=== PATIENT | male | born 1935 | race Caucasian/White ===

== ENCOUNTER 2017-07-28 09:05 | Day surgery (SDC) | payer MEDICARE ==
[2017-07-25 08:45] VITALS: BMI 25.3
[2017-07-28 10:37] VITALS: RESP 16; TEMP 96.8
[2017-07-28] MEDS ORDERED: LIDOCAINE 1% 20 ML VIAL (10MG/ML) FOR IV START INTRADERMA ONE (10:40)
[2017-07-28] MEDS: LACTATED RINGERS 1,000 ML IV SCH ×2 (10:46→11:07)
[2017-07-28] MEDS ORDERED: PROPOFOL 10 MG/ML 20 ML VIAL IV ONE (11:11)
--- NOTE | 2017-07-28 11:46 | P.PCN ---
Date of Procedure: 07/28/17 Procedure(s) Performed: Procedure: Total colonoscopy. Preoperative diagnosis: Screening for neoplasia, patient has history of polyps and intermittent rectal bleeding. Postoperative diagnosis: 1. Diverticulosis with no evidence of acute diverticulitis or strictures. 2. Low-grade internal hemorrhoids not bleeding at the time of this exam. Preparation: HalfLytely prep. Sedation: Was provided by anesthesia. Brief clinical history: The patient is an 82-year-old male who is scheduled for this evaluation because of history of polyps and history of rectal bleeding. The patient's last colonoscopy was around 5 years ago. Procedure: With the patient on his left lateral decubitus position and after informed consent and adequate sedation, the perianal area was inspected and it did not show any fissures or fistulas. There were no masses felt on digital rectal examination. The Olympus CFQ 160L video colonoscope was then inserted in the rectum in the usual fashion and advanced to the cecum. There were multiple diverticular orifices seen scattered along the length of the bowel wall more so on the left side and sigmoid with less on the right side and around the hepatic flexure with no evidence of acute diverticulitis or strictures. The mucosa appeared healthy. No polyps or tumors were seen. I retroflexed the endoscope in the rectum before the endoscope was withdrawn. Low -grade internal hemorrhoids were noted with no evidence of bleeding. The patient tolerated the procedure well. Plan: The patient was reassured. Discussed dietary measures and local care for hemorrhoids. Further plans based on his course. He will follow up with you as planned.
[2017-07-28 12:03] VITALS: BP 134/82; PULSE 61
--- NOTE | 2017-07-30 20:17 | CDI ---
Outpatient Documentation Clarification Form Date: 07/30/17 CDS/Rehab Consultant Name: Rachele Maradiaga Phone: If any questions, call Beatrice Gonzalez Churn Tender at [phone] Patient Name: Akash Cota Admit Date: 07/28/17 Discharge Date: 07/28/17 ATTENTION: The [facility] Coding Staff appreciate your assistance in clarifying documentation. Please respond to the clarification below the line at the bottom and electronically sign. The [facility] Coding staff will review the response and follow-up if needed. Please note: Queries are made part of the Legal Health Record. If you have any questions, please contact the Churn Tender. Dear Dr. Lawrence, What is the cause of the rectal bleeding? Our coding resources state that when rectal bleeding is documented along with internal and/or external hemorrhoids, the physician must be queried to determine whether the rectal bleeding is secondary to the hemorrhoids, or incidental. Thank you for your kind consideration. MTDD
== END 2017-07-28 12:51 | disposition home or self-care (01) ==
LOC: ORWHC2ENDO 09:05
DX: K62.5 Hemorrhage of anus and rectum (principal); K64.8 Other hemorrhoids; K57.30 Diverticulosis of large intestine without perforation or abscess without bleeding; Z86.010 Personal history of colon polyps; I25.10 Atherosclerotic heart disease of native coronary artery without angina pectoris; I48.91 Unspecified atrial fibrillation; I10 Essential (primary) hypertension; E78.5 Hyperlipidemia, unspecified; Z95.0 Presence of cardiac pacemaker; I25.2 Old myocardial infarction; Z95.1 Presence of aortocoronary bypass graft
CPT/HCPCS: 45378; J2704

== ENCOUNTER 2020-02-29 07:02 | Day surgery (SDC) | payer MEDICARE ==
[~2020-02-29 07:02] MED LIST: ALPRAZolam 0.25 MG TAB PO PRN; ALPRAZolam 0.5 MG TAB PO PRN; ASPIRIN 325 MG TAB PO ONE; HEPARIN SODIUM,PORCINE 10,000 UNIT in SODIUM CHLORIDE 0.9% 1,000 ML IRRIGATION PRN; HEPARIN SODIUM,PORCINE 2,500 UNIT in SODIUM CHLORIDE 0.9% 250 ML IRRIGATION PRN; NITROGLYCERIN SL TABS 0.4 MG TAB SUBLINGUAL PRN; SODIUM CHLORIDE 0.9% 1,000 ML in EMPTY BAG 1 BAG IV ONE
[2020-02-29] MEDS ORDERED: SODIUM CHLORIDE 0.9% 1,000 ML IV ONE (07:17)
[2020-02-29 07:46] LABS: Basophils # (A) 0.1 k/uL (0-0.2); Basophils % (A) 1 %; Eosinophils # (A) 0.2 k/uL (0-0.7); Eosinophils % (A) 2 %; HCT 50.9 % (39.0-53.0); HGB 17.4 gm/dL (13.0-17.5); Lymphocytes # (A) 1.4 k/uL (1.0-4.8); Lymphocytes % (A) 19 %; MCH 33.4 pg (25.0-35.0); MCHC 34.2 g/dL (31.0-37.0); MCV 97.7 fL (80.0-100.0); Mean Platelet Volume 7.4; Monocytes # (A) 0.4 k/uL (0-1.0); Monocytes % (A) 6 %; Neutrophils # (A) 5.2 k/uL (1.3-7.7); Neutrophils % (A) 71 %; Platelet Count 193 k/uL (150-450); RBC 5.21 m/uL (4.30-5.90); RDW 13.6 % (11.5-15.5); WBC 7.3 k/uL (3.8-10.6)
[2020-02-29] MEDS ORDERED: fentaNYL (PF) 50 MCG/ML 2 ML AMP ONE (08:33)
[2020-02-29 08:52] LABS: African American GFR (CKD) >90 (>60 ml/min/1.73 sqM); Anion Gap 5 mmol/L; Blood Urea Nitrogen 19 mg/dL (9-20); Calcium 8.8 mg/dL (8.4-10.2); Carbon Dioxide 26 mmol/L (22-30); Chloride 109 mmol/L (98-107); Glucose 103 mg/dL (74-99); Non-African American GFR(CKD) 82 (>60 ml/min/1.73 sqM); Potassium 4.1 mmol/L (3.5-5.1); Sodium 140 mmol/L (137-145)
[2020-02-29] MEDS ORDERED: IV FLUID CONTINUATION 1,000 ML IV ONE (10:05)
[2020-02-29] MEDS: BENZOCAINE SPRAY 1 CAN MUCOUS MEM ONE ×2 (10:10→10:15)
[2020-02-29] MEDS ORDERED: fentaNYL (PF) 50 MCG/ML 2 ML AMP IV ONE (10:24)
[2020-02-29] MEDS ORDERED: MIDAZOLAM 2 MG/2 ML VIAL IV ONE (10:24)
[2020-02-29] MEDS ORDERED: VERAPAMIL 2.5 MG/ML 2 ML AMP ONE (10:33)
[2020-02-29] MEDS ORDERED: HEPARIN SODIUM 1,000 UN/ML (10ML VL) ONE (10:34)
[2020-02-29] MEDS ORDERED: LIDOCAINE 1% INJ 10MG/ML (20 ML MDV) SQ ONE ×2 (10:56→11:00)
[2020-02-29] MEDS ORDERED: LIDOCAINE 1% INJ 10MG/ML (20 ML MDV) ONE (10:59)
[2020-02-29] MEDS ORDERED: CLOPIDOGREL 75 MG TAB ONE (11:26)
[2020-02-29] MEDS ORDERED: HEPARIN SODIUM 1,000 UN/ML (10ML VL) IV ONE (11:28)
[2020-02-29 11:30] LABS: O2 Sat Blood Gas 64.6 %
[2020-02-29 11:30] LABS: O2 Sat Blood Gas 60.6 %
[2020-02-29] MEDS ORDERED: CLOPIDOGREL 75 MG TAB PO ONE (11:30)
[2020-02-29 11:31] LABS: O2 Sat Blood Gas 97.3 %
[2020-02-29] MEDS ORDERED: IOPAMIDOL-370 125ML BTL INJ ONE ×2 (11:34→12:02)
[2020-02-29] MEDS ORDERED: NITROGLYCERIN 1000MCG/10ML SYRINGE INTRACORON ONE (11:45)
--- NOTE | 2020-02-29 11:59 | ECHOT ---
TRANSESOPHAGEAL ECHOCARDIOGRAM INDICATION: Evaluation of aortic valve. PROCEDURE: After explaining the procedure to the patient with risks and the complications, blood pressure, heart rate, O2 saturation were monitored. The throat was sprayed with Cetacaine. He received 2 mg intravenous Versed, 50 mcg intravenous fentanyl. The probe was introduced in the esophagus without difficulty. Images were obtained. Following that, the probe was removed. There was no immediate complication. FINDINGS: Left atrial size is mildly dilated. Left ventricular size is normal. The estimated ejection fraction of 50% to 55%. The aortic valve is a tricuspid valve severely calcified with reduced opening by planimetry. The valve area is between 0.6 and 0.7 centimeter square. Mitral valve revealed mitral annulus calcification. Tricuspid valve is normal. Descending thoracic aorta appears to be normal. No pericardial effusion was noted. Contrast bubble study revealed no evidence of shunting across the interatrial septum with Valsalva maneuver. There was inability to advance the probe into the stomach, probably related to a hiatal hernia. Doppler, pulse wave and color Doppler obtained revealed mild to moderate mitral with mild tricuspid and aortic regurgitation. There was no shunting by color Doppler study. CONCLUSION: 1. Normal left ventricular size with an ejection fraction of 50% to 55%. 2. Severe aortic stenosis by planimetry, unable to obtain a gradient because of the inability to advance the probe in the stomach. 3. Mitral annulus calcification. 4. Mild to moderate mitral with mild tricuspid and aortic regurgitation. 5. No pericardial effusion. 6. No shunting across the interatrial septum. MMODL / IJN: [id number] /
[2020-02-29] MEDS ORDERED: IOPAMIDOL-370 100ML BTL INJ ONE (12:51)
[2020-02-29] MEDS ORDERED: MAG HYDROX/AL HYDROX/SIMETH 30 ML CUP PO PRN (13:05)
[2020-02-29] MEDS ORDERED: RX INFO: IV CONTRAST WAS GIVEN 1 EACH MISC MISCELLANE PRN (13:05)
[2020-02-29] MEDS ORDERED: ZOLPIDEM 5 MG TAB PO PRN (13:05)
[2020-02-29] MEDS ORDERED: NITROGLYCERIN SL TABS 0.4 MG TAB SUBLINGUAL PRN (13:05)
[2020-02-29] MEDS ORDERED: ATROPINE SULFATE 0.1 MG/ML 10ML SYRINGE IV PRN (13:05)
[2020-02-29] MEDS ORDERED: SODIUM CHLORIDE 0.9% 1,000 ML IV SCH (13:15)
--- NOTE | 2020-02-29 15:56 | CC ---
CARDIAC CATHETERIZATION REPORT Mr. Cota is an 85-year-old male with known history of coronary artery disease, status post coronary artery bypass grafting, history of hypertension and hyperlipidemia with progressive aortic stenosis and symptoms of dyspnea on exertion. In view of that, recommendation was made regarding cardiac catheterization. The procedure, its risks and complications were discussed with the patient, who was in full understanding and agreement. PROCEDURE DESCRIPTION: Patient was brought to the laborer tanbark in a fasting, semi-sedated state. After receiving fentanyl and Benadryl and achieving a moderate conscious sedated state, using Xylocaine anesthesia and Seldinger technique, a 6-Anguillan sheath was introduced into the right femoral artery and an 8-Anguillan sheath into the right femoral vein. Right heart catheterization was performed using Genoa-Alfonzo catheter. Multiple pressures and samples were obtained. Cardiac output by thermodilution was calculated. Following that, selective right and left coronary angiography was performed using 6-Anguillan, 4 bend, right and left Jayro catheters. Multiple views were taken of the coronary arteries, including hemiaxial views. Following that the right Jayro was used to cannulate the JOSEPH and images of the grafts were obtained. Following that, the Jayro was used to cross the aortic valve and left ventricular end-diastolic pressure and gradient were calculated. Following that, catheters were removed. Images were reviewed. FINDINGS: FLUOROSCOPY: There was severe calcification involving the coronary arteries. HEMODYNAMICS: Right atrial saturation 60%. Pulmonary saturation 65%. Femoral artery saturation 97%. Cardiac output by thermodilution 3.3 L/minute and by Kristin 3.8 L/minute. Pulmonary capillary wedge pressure systolic of 32, diastolic of 12 with a mean of 22 mmHg. Pulmonary capillary wedge pressure V-wave of 16 with a mean of 12 mmHg. Right ventricular systolic pressure of 36 with an end-diastolic of 4 mmHg. Right atrial V-wave of 5 with a mean of 4 mmHg. Left ventricular end-diastolic pressure was 16-18 mmHg. There was a 36 mm peak gradient across the aortic valve. The cardiac output by Hakki formula was 0.63 cm2. CORONARY ARTERIES: LEFT MAIN: This is a large-sized vessel, bifurcating into left circumflex and left anterior descending artery. Left main coronary artery has a 20% to 30% plaque in the proximal and mid segment. The rest of the vessel has no high-grade stenosis. LEFT ANTERIOR DESCENDING ARTERY: This vessel is subtotally occluded after the takeoff of the first septal automotive salesperson at the vessel proximally. It has diffuse disease. There is competitive flow in the distal LAD. LEFT CIRCUMFLEX: This is a nondominant vessel giving rise to 3 obtuse marginal branches. The second one is the largest in caliber. After the takeoff of the first obtuse marginal branch there is a 95% stenosis, and after the takeoff of the second obtuse marginal branch there is diffuse intimal disease in a long segment up to 90%. The vessel beyond that is small in caliber. RAMUS INTERMEDIUS: This vessel is totally occluded proximally with no significant antegrade flow. RIGHT CORONARY ARTERY: This vessel is large in caliber, dominant, heavily calcified in the mid segment, giving rise to a PDA and PLV. The right coronary artery in the mid segment has a 95% eccentric lesion. The rest of the vessel has no high-grade stenosis. JOSEPH TO THE LAD AND THE RAMUS INTERMEDIUS: The distal anastomotic sites are patent. The flow into the ramus and the LAD is brisk. LEFT VENTRICULOGRAM: Left ventriculogram was not performed. CONCLUSION: 1. Calcified coronary arteries. 2. Critical stenosis in the circumflex and the right coronary artery. 3. Patent JOSEPH to the LAD and the ramus intermedius. 4. Severe aortic stenosis. RECOMMENDATIONS: In view of findings and anatomy, I have recommended proceeding with angioplasty and stenting of the left circumflex and the right coronary artery. The procedure, its risks and complications were discussed with the patient, who is in full understanding and agreement. MMODL / IJN: [id number] /
--- NOTE | 2020-02-29 16:02 | PTCA ---
PERCUTANEOUSTRANS CORORONARY ANGIOGRAPHY Mr. Cota is an 85-year-old male with a known history of coronary artery disease, status post coronary artery bypass grafting with severe aortic stenosis, who underwent cardiac catheterization for preparation for TAVR and was found to have critical stenosis involving the left circumflex and the right coronary artery. In view of that, recommendation was made regarding angioplasty and stenting, the procedure as well as the risks and the complications were discussed with the patient who is in full understanding and agreement. PROCEDURE: A 6-Syriac FR4 guiding catheter introduced in the system. After cannulating the left main, a 0.014 balanced medium weight J-wire was advanced across the second obtuse marginal branch. Subsequently, a 0.014 Whisper J-wire was advanced with the help of a Fine Cross and subsequently exchanged to 0.014 balanced medium weight J-wire. Following that, a 2.5 x 12 mm NC Trek balloon was advanced and one inflation in the proximal segment at 12 atmospheres was done. Following that, the balloon was removed and a 2.5 x 15 mm Xience Lisa stent was deployed postdilated at 16 atmospheres. After the last inflation, after appropriate wait the balloon and the guidewire were withdrawn back in the guiding catheter. Images were obtained and repeated. Those images reveal stable successful stenting. At that point, the guiding catheter, the balloon and the guidewire were removed and a 6-Syriac FR4 guiding catheter introduced in the system. After obtaining images of the right coronary artery, the 0.014 balanced medium weight J- wire was advanced and positioned distally, attempt to advance a 2.5 x 12 mm NC Emerge balloon were unsuccessful. That balloon was removed and a 2.0 x 12 mm Trek balloon was advanced and multiple inflations at 10 atmospheres were done. Following that, the balloon was removed and another 0.014 balanced medium weight J-wire was advanced next to the first one in a shanon fashion. Subsequently the 2.5 x 12 mm NC Emerge was advanced and inflations were done in the mid segment of the right coronary artery and a maximum of 12 atmospheres. Following that, the balloon was removed and attempt to advance a 2.75 x 15 mm Xience Lisa stent were unsuccessful. The stent was removed and a 2.5 x 12 mm NC Emerge was reintroduced. Inflations were done at maximum of 12 atmospheres and after removing that balloon, a 2.75 x 15 mm NC Trek balloon was advanced and inflations at 12 atmospheres were done. Following that the balloon was removed and a 2.75 x 15 mm Xience Lisa stent was advanced, deployed and postdilated at 16 atmospheres. Subsequently, the balloon was removed and a 3.0 x 15 mm Xience Lisa stent was deployed proximal to the first one and postdilated at 16 atmospheres. Subsequently, the balloon was advanced and one inflation at 16 atmospheres was done at the overlapping segment. After the last inflation, after appropriate wait, the balloon and the guidewire were withdrawn back in the guiding catheter. Images were obtained and repeated. Those images reveal stable successful stenting. At that point, the guiding catheter, the balloon and the guidewire were removed. The sheath was removed. Hemostasis was obtained with deployment of an Angio-Seal and suturing of the right femoral vein sheath. Of note, the patient had no chest discomfort or significant EKG changes with the inflation. He received oral loading dose of clopidogrel as well as 6000 units intravenous heparin. His ACT was monitored. RESULTS: 1. Successful stenting of the proximal left circumflex with reduction of stenosis from 95% to 0%. 2. Successful stenting of the mid right coronary artery with reduction of stenosis from 95% to 0%. RECOMMENDATION: Patient will be continued on aspirin, Plavix and subsequently he will restarted on anticoagulation. The importance of dual antiplatelet treatment were discussed with the patient. Subsequently the aspirin will be stopped in 4 weeks and he will be maintained on Plavix and the anticoagulation. He will be re-evaluated down the road to undergo TAVR. The recommendation was discussed with the patient and his family and they are in full understanding and agreement. Duration of sedation is 118 minutes. MMODL / IJN: [id number] /
--- NOTE | 2020-02-29 16:20 | LTR ---
February 29, 2020 Re: Akash Cota Dear Dr. Christopher: I had the opportunity to perform cardiac catheterization and coronary angioplasty and stenting on Mr. Cota at [facility] on the 28 of February and a full copy of the procedure note will be forwarded to you. In brief, he underwent successful stenting of the mid right coronary artery and proximal left circumflex. At the same time, he was found to have severe aortic stenosis and he will be evaluated at a later time to undergo TAVR. I will keep you updated on his progress. Thank you again for allowing me the opportunity to participate in his care. Please feel free to call for any questions. Sincerely yours, MD ROSALIND Hall / LYNN: [id number] /
[2020-02-29 20:50] VITALS: RESP 18
[2020-02-29] MEDS ORDERED: ATORVASTATIN 80 MG TAB PO SCH (21:00)
[2020-02-29] MEDS: METOPROLOL TARTRATE 50 MG TAB PO SCH (21:25)
[2020-03-01 05:58] VITALS: BP 121/69; PULSE 61; TEMP 97.8
[2020-03-01] MEDS: METOPROLOL TARTRATE 50 MG TAB PO SCH (07:34)
[2020-03-01] MEDS ORDERED: ASPIRIN 81 MG PO SCH (09:00)
--- NOTE | 2020-03-01 09:21 | PN ---
PROGRESS NOTE Mr. Cota is an 85-year-old male with known history of coronary artery disease, history of hypertension, atrial fibrillation, who has been having progressive symptoms of dyspnea, progressive aortic stenosis, underwent transesophageal echocardiogram revealed severe aortic stenosis. His cardiac catheterization revealed a patent JOSEPH to the LAD and ramus intermedius with critical stenosis in the right coronary artery and left circumflex. He underwent successful stenting of those vessels. He is complaining of dyspnea on exertion today, but no chest discomfort. He denies any tightness in the chest. No dizziness. No palpitation. He continues to be on aspirin once a day, Plavix 75 mg daily, Lipitor 80 mg daily, and metoprolol tartrate 50 mg twice a day. PHYSICAL EXAMINATION: Blood pressure 121/60 with the heart rate in the 60s. LUNGS: Clear. HEART: Irregular, irregular rate and rhythm. S1, S2. No S3 with systolic ejection murmur heard at the base, ejection type 3/6. No diastolic murmur. No rub. ABDOMEN: Soft, nontender. RIGHT GROIN: No hematoma. IMPRESSION: 1. Status post stenting of the left circumflex and right coronary artery. 2. Severe symptomatic aortic stenosis. 3. Atrial fibrillation. 4. Hyperlipidemia. RECOMMENDATION: Patient will be discharged home today. We will re-initiate treatment with the anticoagulation with Eliquis. His aspirin will be stopped in 4 weeks. He will be evaluated for TAVR as an outpatient. MMODL / LYNN: [id number] /
[2020-03-01] MEDS ORDERED: CLOPIDOGREL 75 MG TAB PO SCH (12:00)
[2020-03-01 12:45] LABS: African American GFR (CKD) 101.1 (60.0-200.0); Anion Gap 9.7 mmol/L (4.00-12.00); BUN/Creat Ratio 22.86 Ratio (12.00-20.00); Calcium 8.6 mg/dL (8.7-10.3); Carbon Dioxide 24.3 mmol/L (21.6-31.8); Non-African American GFR(CKD) 87.3 (60.0-200.0); Potassium 4.2 mmol/L (3.5-5.5)
[2020-03-01 13:03] VITALS: BMI 25.3
== END 2020-03-01 12:04 | disposition home or self-care (01) ==
LOC: CATHCVL 07:02 → EEVIPCON 07:02 → 6NMEDSUR 12:52 → CATHCVL 03-01 12:04
PROVIDERS: ATTEND Internal Medicine Interventional Cardiology
DX: I25.10 Atherosclerotic heart disease of native coronary artery without angina pectoris (principal); I25.84 Coronary atherosclerosis due to calcified coronary lesion; I25.82 Chronic total occlusion of coronary artery; I10 Essential (primary) hypertension; I08.3 Combined rheumatic disorders of mitral, aortic and tricuspid valves; E78.5 Hyperlipidemia, unspecified; Z95.1 Presence of aortocoronary bypass graft; E78.00 Pure hypercholesterolemia, unspecified; I73.9 Peripheral vascular disease, unspecified; I48.91 Unspecified atrial fibrillation; Z79.82 Long term (current) use of aspirin; Z79.899 Other long term (current) drug therapy
CPT/HCPCS: 93312; 93320; 93005; 93325; 93461; 80048 ×2; 85018; 82810; 85025; C9600 ×2; C1769 ×6; C1760; C1887 ×3; C1725 ×5; C1751; C1894 ×3; C1874; J2250; J2001; J3010; J1644; Q9967 ×2

== ENCOUNTER → 2020-04-24 | Outpatient (CLI) | payer MEDICARE ==
[2020-04-24 14:59] LABS: HCT 47.1 % (39.6-50.0); MCH 32.1 pg (27.0-32.0); MCHC 31.8 g/dL (32.0-37.0); MCV 100.6 fL (80.0-97.0); Mean Platelet Volume 10.3 fL (9.5-12.2); Platelet Count 221 X 10*3/uL (140-440); RBC 4.68 X 10*6/uL (4.40-5.60); RDW 13.2 % (11.5-14.5); WBC 8.36 X 10*3/uL (4.50-10.00)
[2020-04-24 15:44] LABS: African American GFR (CKD) 91.2 (60.0-200.0); Albumin 4.5 g/dL (3.80-4.90); Albumin/Globulin Ratio 2.5 (1.60-3.17); Anion Gap 7.9 mmol/L (4.00-12.00); BUN/Creat Ratio 17.78 Ratio (12.00-20.00); Calcium 9.4 mg/dL (8.7-10.3); Carbon Dioxide 29.1 mmol/L (21.6-31.8); Globulin 1.8 g/dL (1.6-3.3); Magnesium 1.6 mg/dL (1.5-2.4); Non-African American GFR(CKD) 78.7 (60.0-200.0); Potassium 4.4 mmol/L (3.5-5.5); Total Protein 6.3 g/dL (6.2-8.2)
[2020-04-24 16:06] LABS: INR 0.99 (0.90-1.11); Prothrombin Time 10.8 sec (9.9-11.9)
== END | disposition home or self-care (01) ==
LOC: LABWHC1 08:25
PROVIDERS: ATTEND Student in an Organized Health Care Education/Training Program
DX: I35.0 Nonrheumatic aortic (valve) stenosis (principal)
CPT/HCPCS: 36415; 80053; 83735; 85027; 85610

== ENCOUNTER → 2021-09-20 | Outpatient (CLI) | payer MEDICARE ==
--- NOTE | 2021-09-20 08:14 | CT ---
EXAMINATION TYPE: CT brain wo con CT DLP: 1126.5 mGycm, Automated exposure control for dose reduction was used. DATE OF EXAM: 09/20/2021 7:58 AM COMPARISON: None. CLINICAL INDICATION:Male, 86 years old with history of R63.0 anorexia, Anorexia TECHNIQUE: Brain: Axial CT images of the brain were obtained with coronal and sagittal reformats created and rev iewed. Contrast used: None. Oral contrast used: None. FINDINGS: Brain: Extra-axial spaces: No abnormal extra-axial fluid collections. Ventricular system: Dilatation in proportion to cerebral atrophy. Cerebral parenchyma: Cerebral atrophy. No acute intraparenchymal hemorrhage or mass effect. The crabtree -white junction is well differentiated. Scattered hypoattenuating areas are seen within the white mat ter. Cerebellum: Unremarkable. Mass effect: No evidence of midline shift. Intracranial vasculature: Atherosclerotic calcifications of the intracranial vessels. Soft tissues: Normal. Calvarium/osseous structures: No depressed skull fracture. Paranasal sinuses and mastoid air cells: Mild scattered paranasal sinus disease. Visualized orbits: Bilateral aphakia IMPRESSION: 1. No acute intracranial process. 2. Nonspecific white matter changes, likely secondary to chronic small vessel ischemic disease.
== END | disposition home or self-care (01) ==
LOC: RADCTMAIN 07:38
PROVIDERS: ATTEND Family Medicine
DX: R63.0 Anorexia (principal)
CPT/HCPCS: 70450

== ENCOUNTER → 2023-07-14 | Outpatient (CLI) | payer MEDICARE ==
[2023-07-14 08:38] LABS: African American GFR (CKD) 87 (>60 ml/min/1.73 sqM); Blood Urea Nitrogen 22 mg/dL (9-20); Non-African American GFR(CKD) 75 (>60 ml/min/1.73 sqM)
--- NOTE | 2023-07-14 21:09 | CT ---
EXAMINATION TYPE: CT ChestAbdPelvis w con CT DLP: 638.4 mGycm, Automated exposure control for dose reduction was used. DATE OF EXAM: 07/14/2023 9:51 AM COMPARISON: CT abdomen and pelvis 08/20/2013 CLINICAL INDICATION:Male, 88 years old with history of R63.4 unexplained weight loss; PHH, Not eating and losing weight. Technique: Multiple axial images of the chest, abdomen, and pelvis were obtained following the intrav enous administration of 100 mL Isovue-300. Oral contrast was administered. Two-dimensional coronal an d sagittal reconstructions were obtained. Findings: CHEST: LUNGS/ PLEURA: No pleural effusion or pneumothorax. Elevation of the left hemidiaphragm. Linear scar or atelectasis within the left upper lobe. No suspicious pulmonary nodule or mass. Pulmonary cyst drake ntified within the left upper lobe. AIRWAY: Patent and unremarkable.. HEART: Mildly enlarged. Post-CABG changes. Left chest wall cardiac pacemaker device. Postsurgical giovanni nges from aortic valvular replacement. MEDIASTINUM: No pathologically enlarged adenopathy. VASCULATURE: No aortic aneurysm. Post aortic valvular replacement. MUSCULOSKELETAL: No acute osseous abnormalities. Postsurgical changes from median sternotomy. Osteoar thritic changes of both shoulders with left greater than right. No suspicious osseous abnormalities. SOFT TISSUES/LYMPH NODES: Unremarkable. LOWER NECK: No significant findings. ABDOMEN: ABDOMEN LIVER: Unremarkable GALLBLADDER AND BILE DUCTS: Unremarkable. PANCREAS: Atrophy of the pancreas. SPLEEN: Unremarkable. ADRENAL GLANDS: Unremarkable. KIDNEYS AND URETERS: No evidence of hydronephrosis or renal calculus. The kidneys enhance symmetrical ly. Mild cortical thinning of both kidneys. PELVIS BLADDER: Unremarkable REPRODUCTIVE: Unremarkable. ABDOMEN & PELVIS STOMACH AND BOWEL: Small hiatal hernia. Circumferential wall thickening of the distal esophagus with eccentric masslike filling defect at the GE junction measuring at least 4.0 x 4.5 cm (series 3, image 45 and 33, image 33). Proximal duodenal diverticulum. Enteric contrast reaches the sigmoid colon. Ex tensive colonic diverticulosis without evidence of surrounding inflammatory changes. No evidence of b owel obstruction. PERITONEUM: No evidence of pneumoperitoneum or free fluid. VASCULATURE: Moderate atherosclerotic calcifications are present throughout the abdominal aorta and i ts branches. No abdominal aortic aneurysm. MUSCULOSKELETAL: No acute osseous abnormalities. Multilevel degenerative changes of the spine. Lower lumbar spinous process fusion changes. No suspicious osseous abnormalities. LYMPH NODES: No gross evidence for lymphadenopathy. SOFT TISSUE/ABDOMINAL WALL: Unremarkable IMPRESSION: 1. Abnormal wall thickening of the distal esophagus with masslike filling defect at the GE junction highly suspicious for malignancy. Endoscopy with tissue sampling is recommended.No suspicious lymphad enopathy. 2. Extensive colonic diverticulosis. 3. Post surgical changes of the heart.
== END | disposition home or self-care (01) ==
LOC: RADCTMAIN 07:55
PROVIDERS: ATTEND Internal Medicine
DX: K57.30 Diverticulosis of large intestine without perforation or abscess without bleeding (principal); R63.4 Abnormal weight loss
CPT/HCPCS: 82565; 84520; 71260; 74177; 36415; Q9967

== ENCOUNTER → 2023-07-18 | Day surgery (SDC) | payer MEDICARE ==
[~2023-07-18] MED LIST changes: -ALPRAZolam 0.25 MG TAB PO PRN; -ALPRAZolam 0.5 MG TAB PO PRN; -ASPIRIN 325 MG TAB PO ONE; -HEPARIN SODIUM,PORCINE 10,000 UNIT in SODIUM CHLORIDE 0.9% 1,000 ML IRRIGATION PRN; -HEPARIN SODIUM,PORCINE 2,500 UNIT in SODIUM CHLORIDE 0.9% 250 ML IRRIGATION PRN; +LIDOCAINE 1% (10MG/ML) FOR IV START INTRADERMA PRN; +LIDOCAINE 2% (PF) 20 MG/ML 5 ML VIAL ONE; +MIDAZOLAM 2 MG/2 ML VIAL IV PRN; -NITROGLYCERIN SL TABS 0.4 MG TAB SUBLINGUAL PRN; +PROPOFOL 10 MG/ML 20 ML VIAL IV ONE; -SODIUM CHLORIDE 0.9% 1,000 ML in EMPTY BAG 1 BAG IV ONE
[2023-07-18 13:35] VITALS: TEMP 97.3
[2023-07-18] MEDS: LACTATED RINGERS 1,000 ML IV SCH (13:43)
[2023-07-18] MEDS: IV FLUID CONTINUATION 1,000 ML IV ONE (13:48)
--- NOTE | 2023-07-18 14:45 | P.PCN ---
Date of Procedure: 07/18/23 Procedure(s) Performed: BRIEF HISTORY: Patient is a 88-year-old, pleasant, white male scheduled for an upper endoscopy as a part evaluation of abdominal CAT scan that showed thickening of the distal esophagus with masslike filling defect noted. Patient is asymptomatic. PROCEDURE PERFORMED: Esophagogastroduodenoscopy with balloon dilation. PREOPERATIVE DIAGNOSIS: Abnormal CAT scan of the abdomen that revealed thickening of the distal esophagus rule out mass. IV sedation per anesthesia. PROCEDURE: After informed consent was obtained, the patient was brought into the endoscopy unit. IV sedation was administered by Anesthesia under continuous monitoring. Initially the Olympus GIF-140 video endoscope was inserted into the mouth. Esophagus intubated without any difficulty. It was gradually advanced into the distal esophagus and there was a tight stricture identified in the scope could not be advanced into the stomach. At this time balloon dilation was performed using 10 to 12 mm TTS balloon for 30 seconds. Following the dilation I was able to advance the scope into the stomach and duodenum and carefully examined. The bulb and the second part of the duodenum appeared normal. The scope at this time was withdrawn to the stomach, adequately insufflated with air, and upon careful examination, mucosa of the antrum, body, cardia and the fundus appeared normal. The scope was then withdrawn into the esophagus. The GE junction was located at 39 cm from the incisors. Small hiatal hernia noted. There was mild oozing noted at the site of dilation in the distal esophagus. The rest of the esophagus appeared normal. There were no erosions or ulcerations seen and the patient tolerated the procedure well. IMPRESSION: 1. Distal esophageal stricture s/p balloon dilation using 10 to 12 mm TTS balloon. 2. Small hiatal hernia. 3. No evidence of esophageal mass RECOMMENDATIONS: The findings of this examination were discussed with the patient as well as his family. He was advised to be on clear liquids for 2 hours. Recommend Prilosec 20 mg daily and follow antireflux.
[2023-07-18 15:13] VITALS: BP 130/80; PULSE 60; RESP 16
== END ==
LOC: ORWHC2ENDO 11:55
PROVIDERS: ATTEND Internal Medicine Gastroenterology
DX: K22.2 Esophageal obstruction (principal); K44.9 Diaphragmatic hernia without obstruction or gangrene; I11.0 Hypertensive heart disease with heart failure; I50.9 Heart failure, unspecified; I25.10 Atherosclerotic heart disease of native coronary artery without angina pectoris; I48.91 Unspecified atrial fibrillation; M19.90 Unspecified osteoarthritis, unspecified site; Z79.01 Long term (current) use of anticoagulants; Z79.899 Other long term (current) drug therapy; Z79.82 Long term (current) use of aspirin; Z95.5 Presence of coronary angioplasty implant and graft; Z98.890 Other specified postprocedural states
CPT/HCPCS: 43249; J2704; J2001; C1726